=== PATIENT | female | born 1935 | race Two or more races ===

== ENCOUNTER 2017-02-21 11:00 | Inpatient (IN) | payer SELFPAY ==
[2017-02-21 11:41] LABS: ADD MAN DIFF? NO
[2017-02-21 11:45] LABS: BASO # 0.1 x10^3/uL (0.0-0.2); BASO % 1 % (0-3); EOS # 0.4 x10^3/uL (0.0-0.7); EOS % 5 % (0-3); HEMOGLOBIN 13.4 g/dL (12.0-15.5); LYMPH # 2.5 x10^3/uL (1.0-4.8); LYMPH % 31 % (24-48); MEAN CORPUSCULAR HEMOGLOBIN 29 pg (25-35); MEAN CORPUSCULAR HGB CONC 32 g/dL (31-37); MEAN CORPUSCULAR VOLUME 90 fL (79-100); MONO # 0.6 x10^3/uL (0.0-1.1); MONO % 8 % (0-9); NEUT # 4.6 x10^3uL (1.8-7.7); NEUT % 56 % (31-73); PLATELET COUNT 179 x10^3/uL (140-400); RED BLOOD COUNT 4.68 x10^6/uL (3.50-5.40); RED CELL DISTRIBUTION WIDTH 13.3 % (11.5-14.5); WHITE BLOOD COUNT 8.3 x10^3/uL (4.0-11.0)
[2017-02-21 11:51] LABS: ANION GAP 7 (6-14); BLOOD UREA NITROGEN 27 mg/dL (7-20); BUN/CREATININE RATIO 30 (6-20); CALCIUM 9.6 mg/dL (8.5-10.1); CARBON DIOXIDE 32 mmol/L (21-32); CHLORIDE 101 mmol/L (98-107); CREATININE 0.9 mg/dL (0.6-1.0); GFR 59.9; GLUCOSE 111 mg/dL (70-99); POTASSIUM 4.3 mmol/L (3.5-5.1); SODIUM 140 mmol/L (136-145)
[2017-02-21 11:57] LABS: ALBUMIN 4.2 g/dL (3.4-5.0); ALBUMIN/GLOBULIN RATIO 1.2 (1.0-1.7); ALK PHOS 95 U/L (46-116); ALT (SGPT) 18 U/L (14-59); AST (SGOT) 23 U/L (15-37); TOTAL BILIRUBIN 0.3 mg/dL (0.2-1.0); TOTAL PROTEIN 7.8 g/dL (6.4-8.2)
[2017-02-21 11:58] LABS: BILIRUBIN,URINE NEGATIVE (NEG); CLARITY,URINE CLEAR; COLOR,URINE YELLOW; GLUCOSE,URINE NEGATIVE (NEG); NITRITE,URINE NEGATIVE (NEG); PROTEIN,URINE NEGATIVE (NEG-TRACE); UROBILINOGEN,URINE 0.2 mg/dL (0.2 mg/dL)
[2017-02-21 12:16] LABS: BACTERIA,URINE 0 /HPF (0-FEW); RBC,URINE 0 /HPF (0-2); SQUAMOUS EPITHELIAL CELL,UR FEW /LPF; WBC,URINE OCC /HPF (0-4)
[2017-02-21] MEDS: ASPIRIN CHEWABLE 81 MG TABLET. PO (13:20)
[2017-02-21] MEDS ORDERED: ONDANSETRON PF 4 MG/2 ML VIAL. IV (14:15)
[2017-02-21 16:12] LABS: PHENY 4.7 mcg/mL (10.0-20.0)
[2017-02-21 16:17] LABS: CARBAM < 0.5 mcg/mL (4.0-12.0)
[2017-02-21] MEDS: PHENYTOIN 100 MG/4 ML ORAL.SUSP. PEG (23:43)
[2017-02-22] MEDS: PHENYTOIN 100 MG/4 ML ORAL.SUSP. PEG ×3 (06:04→20:43)
[2017-02-22] MEDS: ASPIRIN CHEWABLE 81 MG TABLET. PO (07:28)
[2017-02-22 08:48] LABS: ADD MAN DIFF? NO
[2017-02-22 08:56] LABS: BASO # 0.1 x10^3/uL (0.0-0.2); BASO % 1 % (0-3); EOS # 0.3 x10^3/uL (0.0-0.7); EOS % 4 % (0-3); HEMATOCRIT 43.1 % (36.0-47.0); LYMPH # 2.3 x10^3/uL (1.0-4.8); LYMPH % 31 % (24-48); MEAN CORPUSCULAR HEMOGLOBIN 29 pg (25-35); MEAN CORPUSCULAR HGB CONC 32 g/dL (31-37); MEAN CORPUSCULAR VOLUME 90 fL (79-100); MONO # 0.6 x10^3/uL (0.0-1.1); MONO % 8 % (0-9); NEUT # 4.2 x10^3uL (1.8-7.7); NEUT % 56 % (31-73); PLATELET COUNT 185 x10^3/uL (140-400); RED BLOOD COUNT 4.82 x10^6/uL (3.50-5.40); RED CELL DISTRIBUTION WIDTH 13.2 % (11.5-14.5); WHITE BLOOD COUNT 7.5 x10^3/uL (4.0-11.0)
[2017-02-22 09:03] LABS: ANION GAP 9 (6-14); BLOOD UREA NITROGEN 22 mg/dL (7-20); CALCIUM 9.3 mg/dL (8.5-10.1); CARBON DIOXIDE 31 mmol/L (21-32); CHLORIDE 101 mmol/L (98-107); CREATININE 0.9 mg/dL (0.6-1.0); GFR 59.9; GLUCOSE 145 mg/dL (70-99); POTASSIUM 4.5 mmol/L (3.5-5.1); SODIUM 141 mmol/L (136-145)
[2017-02-22] MEDS ORDERED: MECLIZINE HCL 12.5 MG TABLET. PO (09:30)
[2017-02-22] MEDS ORDERED: DEXTROSE 50% 25 GM / 50ML DISP.SYRIN. IV (09:30)
[2017-02-22] MEDS ORDERED: ONDANSETRON PF 4 MG/2 ML VIAL. IV (09:30)
[2017-02-22 11:59] LABS: POC GLUCOSE 96 mg/dL (70-99)
[2017-02-22] MEDS: INSULIN ASPART 300 UNITS/3 ML INSULN.PEN SQ ×2 (12:00→17:00)
[2017-02-22] MEDS: MECLIZINE HCL 12.5 MG TABLET. PO ×2 (13:59→20:42)
[2017-02-22 17:20] LABS: POC GLUCOSE 149 mg/dL (70-99)
[2017-02-22] MEDS: IV NORMAL SALINE 1000ML BAG 1,000 ML IV (17:38)
[2017-02-22] MEDS: levETIRAcetam 500 MG TABLET PO (21:00)
[2017-02-23] MEDS: IV NORMAL SALINE 1000ML BAG 1,000 ML IV ×3 (03:21→23:00)
[2017-02-23] MEDS: MECLIZINE HCL 12.5 MG TABLET. PO (04:49)
[2017-02-23] MEDS: INSULIN ASPART 300 UNITS/3 ML INSULN.PEN SQ ×3 (08:00→17:00)
[2017-02-23] MEDS: PHENYTOIN SODIUM EXTENDED 100 MG CAPSULE PO ×2 (08:31→21:17)
[2017-02-23] MEDS: levETIRAcetam 500 MG TABLET PO ×2 (08:31→21:17)
[2017-02-23] MEDS: ASPIRIN CHEWABLE 81 MG TABLET. PO (08:31)
[2017-02-23 11:29] LABS: POC GLUCOSE 116 mg/dL (70-99)
[2017-02-23 14:21] LABS: THYROID STIM HORMONE (TSH) 2.203 uIU/mL (0.358-3.74)
[2017-02-23 17:00] LABS: POC GLUCOSE 92 mg/dL (70-99)
[2017-02-23 21:47] LABS: POC GLUCOSE 122 mg/dL (70-99)
[2017-02-24] MEDS: IV NORMAL SALINE 1000ML BAG 1,000 ML IV (05:00)
[2017-02-24 07:36] LABS: POC GLUCOSE 200 mg/dL (70-99)
[2017-02-24] MEDS: levETIRAcetam 500 MG TABLET PO (08:25)
[2017-02-24] MEDS: PHENYTOIN SODIUM EXTENDED 100 MG CAPSULE PO (08:26)
[2017-02-24] MEDS: ASPIRIN CHEWABLE 81 MG TABLET. PO (08:26)
[2017-02-24] MEDS: INSULIN ASPART 300 UNITS/3 ML INSULN.PEN SQ ×2 (08:32→12:00)
[2017-02-24 11:45] LABS: POC GLUCOSE 109 mg/dL (70-99)
[2017-02-25 02:49] LABS: POC GLUCOSE 129 mg/dL (70-99)
== END 2017-02-24 13:20 | disposition home or self-care (01) | DRG 149 ==
LOC: ER 11:00 → 6 SOUTH 13:30
DX: H81.09 Meniere's disease, unspecified ear (principal); I95.9 Hypotension, unspecified; E11.9 Type 2 diabetes mellitus without complications; G40.909 Epilepsy, unspecified, not intractable, without status epilepticus; F40.240 Claustrophobia; Z87.891 Personal history of nicotine dependence; H93.19 Tinnitus, unspecified ear; H91.92 Unspecified hearing loss, left ear
CPT/HCPCS: 36415; 70450; 71010; 80048; 80053; 80156; 80185; 81001; 82533; 82962; 83036; 84443; 85025; 87086; 93005; 97161-GP; 99285; 99285-25; J1815; J2060; J7030; J8597